=== PATIENT | male | born 1970 | race Caucasian/White ===

== ENCOUNTER 2023-01-24 11:49 | Day surgery (SDC) | payer BC ==
[2023-01-17 14:44] VITALS: BMI 29.3
[2023-01-24] MEDS ORDERED: BUPIVACAINE HCL/PF 0.5% (5MG/ML) 10 ML VIAL ONE ×2 (13:37→14:09)
[2023-01-24] MEDS ORDERED: LIDOCAINE HCL 2% (20ML MULTI-DOSE VIAL) ONE (13:37)
[2023-01-24] MEDS ORDERED: PROPOFOL 40 ML ONE (13:42)
[2023-01-24] MEDS ORDERED: MIDAZOLAM HCL 2 MG/2 ML SINGLE DOSE VIAL ONE ×2 (13:42→14:00)
[2023-01-24] MEDS ORDERED: PROPOFOL 20 ML ONE (14:42)
[2023-01-24] MEDS ORDERED: BUPIVACAINE HCL/PF 0.5% (5MG/ML) 10 ML VIAL IJ ONE (15:38)
[2023-01-24 16:18] VITALS: RESP 18; TEMP 97.2
[2023-01-24 17:09] VITALS: BP 129/79; PULSE 72
== END 2023-01-24 17:00 | disposition home or self-care (01) ==
LOC: FASU 11:49
PROVIDERS: ATTEND Podiatrist Foot Surgery
PROC: 0QSN04Z Reposition Right Metatarsal with Internal Fixation Device, Open Approach (ICD-10-PCS; principal; 2023-01-24 14:17)
DX: M20.11 Hallux valgus (acquired), right foot (principal)
CPT/HCPCS: 28296; C1713; 73630-TC-RT-FY

== ENCOUNTER 2023-06-02 10:19 | Day surgery (SDC) | payer BC ==
[2023-05-29 14:25] VITALS: BMI 29.9
[2023-06-02] MEDS ORDERED: LIDOCAINE HCL 2% (20ML MULTI-DOSE VIAL) ONE (11:59)
[2023-06-02] MEDS ORDERED: BUPIVACAINE HCL/PF 0.5% (5MG/ML) 10 ML VIAL ONE ×2 (11:59→12:04)
[2023-06-02] MEDS ORDERED: PROPOFOL 20 ML ONE ×3 (12:26→13:21)
[2023-06-02] MEDS ORDERED: MIDAZOLAM HCL 2 MG/2 ML SINGLE DOSE VIAL ONE (12:26)
[2023-06-02] MEDS ORDERED: ceFAZolin SODIUM 1 GM VIAL ONE (12:27)
[2023-06-02] MEDS ORDERED: SODIUM CHLORIDE 0.9% P/F 10 ML VIAL IJ ONE (12:27)
[2023-06-02] MEDS ORDERED: LIDOCAINE HCL/PF 2% SDV 5ML VIAL ONE (12:27)
[2023-06-02] MEDS ORDERED: ONDANSETRON 4 MG/2 ML VIAL ONE (13:05)
[2023-06-02] MEDS ORDERED: METOCLOPRAMIDE HCL INJECTION 10 MG/2 ML VIAL ONE (13:05)
[2023-06-02] MEDS ORDERED: oxyCODONE HCL 5 MG TABLET PO PRN (13:41)
[2023-06-02] MEDS ORDERED: ONDANSETRON 4 MG/2 ML VIAL IVPUSH PRN (13:41)
[2023-06-02] MEDS ORDERED: LACTATED RINGERS SOLUTION 1,000 ML IV SCH (13:45)
[2023-06-02 13:49] VITALS: TEMP 97.8
[2023-06-02 13:54] VITALS: PULSE 75
[2023-06-02 15:01] VITALS: BP 126/71; RESP 18
== END 2023-06-02 14:45 | disposition home or self-care (01) ==
LOC: FASU 10:19
PROVIDERS: ATTEND Podiatrist Foot Surgery
PROC: 0SPM04Z Removal of Internal Fixation Device from Right Metatarsal-Phalangeal Joint, Open Approach (ICD-10-PCS; principal; 2023-06-02 13:01)
DX: T84.84XA Pain due to internal orthopedic prosthetic devices, implants and grafts, initial encounter (principal); Y79.1 Therapeutic (nonsurgical) and rehabilitative orthopedic devices associated with adverse incidents; Y92.9 Unspecified place or not applicable
CPT/HCPCS: 73630-TC-RT-FY; 88300-TC; 94760